=== PATIENT | female | born 1955 | race Caucasian/White ===

== ENCOUNTER 2017-04-16 18:02 | Inpatient (IN) | payer OTHER ==
--- NOTE | 2017-04-16 19:32 | ED Physician Chart ---
Chief Complaint/HPI - Patient Information Date Seen:: 04/16/17 Time Seen:: 19:15 Chief Complaint:: suicidal ideation History of Present Illness:: Patient states she would like to go to sleep and not wake up. Patient was admitted to hospital in [place] for 5 days 1 week ago for vomiting and diarrhea. Patient is homeless. Allergies:: Allergies Allergy/AdvReac Type Severity Reaction Status Date / Time tramadol [From Ultram] Allergy Verified 04/16/17 18:52 Vitals:: Vital Signs - 8 hr 04/16/17 18:41 Temp 98.9 F HR 112 RR 16 BP 144/114 O2 Sat % 99 Historian:: Patient Review:: Nurse's Note Reviewed Review of Systems - Review of Systems General/Constitutional: No fever, No chills Skin: No skin lesions Head: No headache Eyes: No loss of vision ENT: No earache Neck: No neck pain, No swelling Cardio Vascular: No chest pain, No palpitations Pulmonary: No SOB GI: No nausea, No vomiting G/U: No dysuria, No frequency Musculoskeletal: Bone or joint pain, No bone or joint pain Endocrine: No polyuria, No polydipsia Psychiatric: Prior psych history Hematopoietic: No bruising Allergic/Immuno: No urticaria Neurological: No syncope, No focal symptoms Past Medical History - Past Medical History Past Medical History: PUD/GERD, Other (cervical stenosis) Family History: HTN Social History: Smoker, Alcohol, Other (occasional alcohol) Surgical History: other (tubal ligation) Psychiatricy History: Bipolar Medication: Reviewed Family Medical History - Family Member Mother History Unknown: Yes Physical Exam - Physical Examination General/Constitutional: Well-developed, well-nourished, Alert, No distress, Non- toxic appearing, Ambulatory Head: Atraumatic Eyes: Lids, conjuctiva normal, PERRL Skin: Nl inspection, No rash, No skin lesions, No ecchymosis, Well hydrated, No lymphadenopathy ENMT: External ears, nose nl, TM canals nl, Nasal exam nl, Lips, teeth, gums nl , Oropharynx nl, Tonsils nl Neck: No nuchal rigidity Respiratory: Nl effort/Exclusion, Clear to Auscultation, No Wheeze/Rhonchi/Rales Cardio Vascular: RRR, No murmur, gallop, rubs GI: No tenderness/rebounding/guarding, No organomegaly : No CVA tenderness Extremities: No tenderness or effusion Neuro/Psych: Alert/oriented, No focal deficits Misc: Normal back, No paraspinal tenderness Labs/Radiology/EKG Results - Lab Results Results: Laboratory Results - last 24 hr 04/16/17 04/16/17 19:37 19:37 WBC 7.1 RBC 3.35 L Hgb 11.4 L Hct 33.3 L MCV 99.2 MCH 34.1 H MCHC Differential 34.3 RDW 17.6 Plt Count 520 H MPV 8.1 Neutrophils % 65.8 Lymphocytes % 19.1 L Monocytes % 12.9 H Eosinophils % 2.0 Basophils % 0.2 Sodium 137 Potassium 3.0 L Chloride 109 H Carbon Dioxide 16.6 L Anion Gap 14.4 BUN 9 Creatinine 1.1 Est GFR ( Amer) > 60.0 Est GFR (Non-Af Amer) 53.5 BUN/Creatinine Ratio 8.2 Glucose 82 Calcium 10.6 H Total Bilirubin 0.3 AST 16 ALT 16 Alkaline Phosphatase 249 H Total Protein 6.6 Albumin 3.8 Globulin 2.8 Albumin/Globulin Ratio 1.4 ED Septic Shock - . Is Septic Shock (SBP<90, OR Lactate>4 mmol\L) present?: No - <6hrs of presentation: Vital Signs: Vital Signs - 8 hr 04/16/17 18:41 Temp 98.9 F HR 112 RR 16 BP 144/114 O2 Sat % 99 Reassessment (Disposition) - Reassessment Reassessment Condition:: Unchanged - Diagnosis Diagnosis:: Hypokalemia; suicidal ideation - Patient Disposition Admitted to:: Med/Surg Spoke to:: Ar Us Admitting Medical Physician:: Ar Us Condition at Disposition:: Unchanged
[2017-04-16 19:43] LABS: % BASOPHILS 0.2 % (0.0-2.0); % LYMPHOCYTES 19.1 % (20.0-50.0); % MONOCYTES 12.9 % (2.0-10.0); % NEUTROPHILS 65.8 % (40.0-80.0); HEMATOCRIT 33.3 % (35.0-45.0); HEMOGLOBIN 11.4 gm/dL (11.7-15.5); MEAN CELL VOLUME 99.2 fl (81-100); MEAN CORPUSCULAR HEMOGLOBIN 34.1 pg (27.0-31.0); MEAN CORPUSCULAR HGB CONC 34.3 pg (28.0-36.0); MEAN PLATELET VOLUME 8.1 fl; NEUTROPHILE ABSOLUTE 4.7 Th/cmm (1.8-8.0); PLATELET COUNT 520 Th/cmm (150-400); RED BLOOD COUNT 3.35 Mil/cmm (3.80-5.10); RED CELL DISTRIBUTION WIDTH 17.6 % (11.5-20.0); WHITE BLOOD COUNT 7.1 Th/cmm (4.8-10.8)
[2017-04-16 19:59] LABS: ALB/GLOB RATIO 1.4 (1.0-1.8); ALKALINE PHOSPHATASE 249 U/L (34-104); ANION GAP 14.4 (7.0-16.0); BILIRUBIN,TOTAL 0.3 mg/dL (0.3-1.0); BUN - UREA NITROGEN 9 mg/dL (7-25); BUN/CREATININE RATIO 8.2; CALCIUM SERUM 10.6 mg/dL (8.6-10.3); CARBON DIOXIDE 16.6 mEq/L (21.0-31.0); CHLORIDE 109 mEq/L (98-107); CREATININE - SERUM 1.1 mg/dL (0.6-1.2); GLUCOSE 82 mg/dL (70-105); SGOT 16 U/L (13-39); SGPT/ALT 16 U/L (7-52); SODIUM SERUM 137 mEq/L (136-145)
[2017-04-16 22:01] LABS: URINE BILIRUBIN NEGATIVE (NEGATIVE); URINE BLOOD NEGATIVE (NEGATIVE); URINE COLOR YELLOW; URINE GLUCOSE (UA) NEGATIVE (NEGATIVE); URINE KETONE NEGATIVE (NEGATIVE); URINE PROTEIN NEGATIVE (NEGATIVE); URINE UROBILINOGEN 0.2 E.U./dL (0.2 - 1.0)
[2017-04-16 22:02] LABS: URINE BACTERIA NONE SEEN /hpf (NONE SEEN); URINE EPITHELIAL CELLS NONE SEEN /lpf (FEW); URINE RBC NONE SEEN /hpf (0-5); URINE WBC NONE SEEN /hpf (0-5)
[2017-04-16] MEDS ORDERED: Potassium Chloride 40 MEQ in Sodium Chloride 0.45% 1,000 ML IV SCH (22:39)
[2017-04-16 22:47] VITALS: BP 142/85
--- NOTE | 2017-04-16 23:33 | Admit Criteria Form ---
Admit Criteria Forms - Admit Criteria Diagnosis: PSYCHIATRIC DISORDERS (Place 'X' for any and all applicable criteria): Ongoing inpatient care may be needed for 1 or more of the following(1)(2)(3)(4)( 6)(7)(8): [X ]I. Danger to self or others not manageable at lower level of care. [ ]II. Grave disability (eg, inability to perform self care necessary at lower level of care) [ ]III. Agitation or inappropriate behavior interfering with care for primary condition (eg, attempting to discontinue lines or drains prematurely, unable to cooperate with respiratory care) [ ]IV. Severe disability or disorder indicated by ALL of the following: [ ]a) Severe behavioral health disorder-related symptoms or condition indicated by 1 or more of the following: [ ]i) Severe problem with cognition, memory, judgment, or impulse control [ ]ii) Severe clinical manifestations (eg, hallucinations, delusions, other acute psychotic symptoms, alanna, extreme agitation or anxiety) [ ]b) Patient management at lower level of care is not feasible until acute intervention or modification is initiated. Extended stay beyond goal length of stay for the primary condition may be needed until ALLof the following are present(1)(2)(3)(4)7)05)(23): [ ]a) Danger to self or others is absent or manageable at lower level of care [ ]b) Behavior crisis management, including physical or chemical restraints, is required and is not available at a lower level of care. [ ]c) Behavioral symptoms (e.g., agitation, somnolence, inappropriate behavior) are present, and are not manageable at a lower level of care. [ ]d) Patient cannot understand follow-up treatment and crisis plan. [ ]e) Provider and supports are sufficiently available at lower level of care. [ ]f) Patient can participate (e.g., verify absence of plan for harm) and is in needed of monitoring. The original [facility] [employer] content created by [facility] has been revised. The portions of the content which have been revised are identified through the use of italic text or in bold, and [facility] [employer] has neither reviewed nor approved the modified material. All other unmodified content is copyright [facility]. Please see references footnoted in the original [facility] edition 2017 Admit Criteria Met?: Yes
[2017-04-17] MEDS ORDERED: 0.45% NS w/20 mEq KCl 1,000 ML IV ONE (00:16)
[2017-04-17] MEDS: 0.45% NS w/20 mEq KCl 1,000 ML IV SCH ×2 (00:27→21:43)
[2017-04-17 05:32] LABS: % BASOPHILS 0.8 % (0.0-2.0); % EOSINOPHILS 4.2 % (0.0-5.0); % LYMPHOCYTES 25.8 % (20.0-50.0); % MONOCYTES 12.8 % (2.0-10.0); % NEUTROPHILS 56.4 % (40.0-80.0); HEMATOCRIT 33.4 % (35.0-45.0); HEMOGLOBIN 11.1 gm/dL (11.7-15.5); MEAN CELL VOLUME 99.6 fl (81-100); MEAN CORPUSCULAR HGB CONC 33.1 pg (28.0-36.0); MEAN PLATELET VOLUME 8.1 fl; NEUTROPHILE ABSOLUTE 3.3 Th/cmm (1.8-8.0); PLATELET COUNT 482 Th/cmm (150-400); RED BLOOD COUNT 3.35 Mil/cmm (3.80-5.10); RED CELL DISTRIBUTION WIDTH 17.7 % (11.5-20.0); WHITE BLOOD COUNT 5.7 Th/cmm (4.8-10.8)
[2017-04-17 06:40] LABS: ALB/GLOB RATIO 1.4 (1.0-1.8); ANION GAP 6.6 (7.0-16.0); BILIRUBIN,TOTAL 0.3 mg/dL (0.3-1.0); BUN/CREATININE RATIO 8.3; CARBON DIOXIDE 23.5 mEq/L (21.0-31.0); CREATININE - SERUM 1.2 mg/dL (0.6-1.2); POTASSIUM SERUM 4.1 mEq/L (3.5-5.1)
[2017-04-17] MEDS: Pantoprazole 40 mg EC Tab PO SCH (08:36)
[2017-04-17] MEDS ORDERED: VTE Chemical Prophylaxis Screen/Admission MC PRN (14:32)
[2017-04-18] MEDS: Pantoprazole 40 mg EC Tab PO SCH (06:30)
[2017-04-18] MEDS: 0.45% NS w/20 mEq KCl 1,000 ML IV SCH (17:44)
[2017-04-19] MEDS: Pantoprazole 40 mg EC Tab PO SCH (06:43)
[2017-04-19] MEDS: 0.45% NS w/20 mEq KCl 1,000 ML IV SCH ×2 (06:45→21:09)
[2017-04-20] MEDS: Pantoprazole 40 mg EC Tab PO SCH (06:51)
[2017-04-20] MEDS: 0.45% NS w/20 mEq KCl 1,000 ML IV SCH (13:28)
--- NOTE | 2017-04-20 16:48 | Internal Medicine Prog Note ---
Internal Medicine Subjective - Subjective Service Date: 04/20/17 Patient seen and examined:: with staff Patient is:: awake Patient Complaints of:: unable to sleep Per staff patient has:: poor appetite Internal Medicine Objective - Results Result Diagrams: 04/17/17 05:05 04/17/17 05:05 Recent Labs: Laboratory Last Values WBC 5.7 Th/cmm (4.8-10.8) 04/17/17 05:05 RBC 3.35 Mil/cmm (3.80-5.10) L 04/17/17 05:05 Hgb 11.1 gm/dL (11.7-15.5) L 04/17/17 05:05 Hct 33.4 % (35.0-45.0) L 04/17/17 05:05 MCV 99.6 fl (81-100) 04/17/17 05:05 MCH 33.0 pg (27.0-31.0) H 04/17/17 05:05 MCHC Differential 33.1 pg (28.0-36.0) 04/17/17 05:05 RDW 17.7 % (11.5-20.0) 04/17/17 05:05 Plt Count 482 Th/cmm (150-400) H 04/17/17 05:05 MPV 8.1 fl 04/17/17 05:05 Neutrophils % 56.4 % (40.0-80.0) 04/17/17 05:05 Lymphocytes % 25.8 % (20.0-50.0) 04/17/17 05:05 Monocytes % 12.8 % (2.0-10.0) H 04/17/17 05:05 Eosinophils % 4.2 % (0.0-5.0) 04/17/17 05:05 Basophils % 0.8 % (0.0-2.0) 04/17/17 05:05 Sodium 138 mEq/L (136-145) 04/17/17 05:05 Potassium 4.1 mEq/L (3.5-5.1) 04/17/17 05:05 Chloride 112 mEq/L (98-107) H 04/17/17 05:05 Carbon Dioxide 23.5 mEq/L (21.0-31.0) 04/17/17 05:05 Anion Gap 6.6 (7.0-16.0) L 04/17/17 05:05 BUN 10 mg/dL (7-25) 04/17/17 05:05 Creatinine 1.2 mg/dL (0.6-1.2) 04/17/17 05:05 Est GFR ( Amer) 58.5 ml/min (>90) 04/17/17 05:05 Est GFR (Non-Af Amer) 48.4 ml/min 04/17/17 05:05 BUN/Creatinine Ratio 8.3 04/17/17 05:05 Glucose 102 mg/dL (70-105) 04/17/17 05:05 Calcium 10.0 mg/dL (8.6-10.3) 04/17/17 05:05 Magnesium 2.0 mg/dL (1.9-2.7) 04/16/17 19:37 Total Bilirubin 0.3 mg/dL (0.3-1.0) 04/17/17 05:05 AST 18 U/L (13-39) 04/17/17 05:05 ALT 15 U/L (7-52) 04/17/17 05:05 Alkaline Phosphatase 218 U/L (34-104) H 04/17/17 05:05 Total Protein 5.8 gm/dL (6.0-8.3) L 04/17/17 05:05 Albumin 3.4 gm/dL (3.7-5.3) L 04/17/17 05:05 Globulin 2.4 gm/dL 04/17/17 05:05 Albumin/Globulin Ratio 1.4 (1.0-1.8) 04/17/17 05:05 TSH 3.28 uIU/ml (0.34-5.60) 04/16/17 19:37 Urine Source CLEAN C 04/16/17 20:00 Urine Color YELLOW 04/16/17 20:00 Urine Clarity CLEAR (CLEAR) 04/16/17 20:00 Urine pH 5.0 04/16/17 20:00 Ur Specific [place] 1.005 (1.005-1.030) 04/16/17 20:00 Urine Protein NEGATIVE mg/dL (NEGATIVE) 04/16/17 20:00 Urine Glucose (UA) NEGATIVE mg/dL (NEGATIVE) 04/16/17 20:00 Urine Ketones NEGATIVE mg/dL (NEGATIVE) 04/16/17 20:00 Urine Blood NEGATIVE (NEGATIVE) 04/16/17 20:00 Urine Nitrate NEGATIVE (NEGATIVE) 04/16/17 20:00 Urine Bilirubin NEGATIVE (NEGATIVE) 04/16/17 20:00 Urine Urobilinogen 0.2 E.U./dL (0.2 - 1.0) 04/16/17 20:00 Ur Leukocyte Esterase NEGATIVE (NEGATIVE) 04/16/17 20:00 Urine RBC NONE SEEN /hpf (0-5) 04/16/17 20:00 Urine WBC NONE SEEN /hpf (0-5) 04/16/17 20:00 Ur Epithelial Cells NONE SEEN /lpf (FEW) 04/16/17 20:00 Urine Bacteria NONE SEEN /hpf (NONE SEEN) 04/16/17 20:00 RPR NONREACTIVE (NONREACTIVE) 04/16/17 19:37 - Physical Exam Vitals and I&O: Vital Signs Temp 99.3 F 04/20/17 12:00 Pulse 73 04/20/17 12:00 Resp 18 04/20/17 12:00 BP 119/75 04/20/17 12:00 Pulse Ox 98 04/20/17 12:00 Intake & Output 04/19/17 04/20/17 04/20/17 18:59 06:59 18:59 Intake Total 650 1300 1000 Balance 650 1300 1000 Weight (lbs) 50.757 kg 51.256 kg 50.213 kg Intake: Intake, IV Amount 1000 1000 0.45% NS w/20 mEq KCl 1, 1000 1000 000 ml @ 75 mls/hr IV . [id number] [facility] Rx#:[id number] Oral 650 300 Other: # Voids 3 4 # Bowel Movements 1 Active Medications: Current Medications Alprazolam (Xanax) 0.5 mg PO TID JESUSITA PRN Reason: Protocol Stop: 06/16/17 08:59 Last Admin: 04/20/17 13:07 Dose: 0.5 mg Escitalopram Oxalate (Lexapro) 10 mg PO HS [facility] PRN Reason: Protocol Stop: 06/16/17 20:59 Last Admin: 04/19/17 21:10 Dose: 10 mg Heparin Sodium (Porcine) (Heparin) 5,000 units SUBQ BID [facility] Stop: 06/16/17 16:59 Last Admin: 04/20/17 09:03 Dose: 5,000 units Potassium Chloride/Sodium Chloride (0.45% Ns W/20 Meq Kcl) 1,000 mls @ 75 mls/ hr IV .[id number] JESUSITA Stop: 06/16/17 00:08 Last Admin: 04/20/17 13:28 Dose: 75 mls/hr Ibuprofen (Motrin) 800 mg PO Q8HR PRN PRN Reason: FOR PAIN Stop: 06/16/17 00:07 Last Admin: 04/20/17 13:27 Dose: 800 mg Mirtazapine (Remeron) 15 mg PO HS JESUSITA PRN Reason: Protocol Stop: 06/16/17 20:59 Last Admin: 04/19/17 21:11 Dose: 15 mg Miscellaneous (Vte Chemical Prophylaxis Screen/ Admission) 1 ea [facility] PRN PRN PRN Reason: PROTOCOL Stop: 06/16/17 14:31 Ondansetron HCl (Zofran) 4 mg IV Q4H PRN PRN Reason: FOR NAUSEA AND VOMITING Stop: 06/16/17 06:59 Last Admin: 04/19/17 05:58 Dose: 4 mg Pantoprazole Sodium (Protonix) 40 mg PO QDAC JESUSITA Stop: 06/16/17 08:59 Last Admin: 04/20/17 06:51 Dose: 40 mg Quetiapine Fumarate (Seroquel) 25 mg PO TID JESUSITA PRN Reason: Protocol Stop: 06/18/17 13:59 Last Admin: 04/20/17 13:08 Dose: 25 mg General: alert HEENT: PERRLA Neck: Supple, No JVD Lungs: CTAB Cardiovascular: RRR, Normal S1, Normal S2 Abdomen: soft, non-tender, non-distended Extremities: clear Neurological: no change Internal Medicine Assmt/Plan - Assessment Assessment: 1'Sever depression 2.COPD - Plan Plan: cONTINUE ON CURRENT MEDICATON AND DIET. Nutritional Asmnt/Malnutr-PDOC - Dietary Evaluation Malnutrition Findings (Please click <Entered> for more info): Nutritional Asmnt/Malnutrition Start: 04/17/17 14: 38 Text: Status: Complete Freq: Document 04/17/17 14:38 GSUN (Rec: 04/17/17 15:04 [email or web address]) Nutritional Asmnt/Malnutrition Patient General Information Nutritional Screening High Risk Screening Diagnosis ER: hypokalemia, suicidal ideation Pertinent Medical Hx/Surgical Hx ER: PUD/GERD, cervical stenosis Subjective Information 61 year old female, homeless. High risk due to BMI 13. Pt does not appear BMI 13. Pt corrected height to be 5ft 4in not 6ft 3in, corrected in EMR . Pt stated UBW 118lb, recent 25 wiehgt loss in past 6 weks, questionable, did not elaborate more. Pt appeared very anxious during visit, focused responses around medications. CBW 107.2lb via bedscale. Pt appeared thin, mild to moderate wasting in clavicles, moderate to chest. Pt stated she felt anxious and nauseas due to regular meds stopped therefore could not tolerate breakfast, otherwise usually great appetite. Current Diet Order/ Nutrition Support Regular Pertinent Medications Xanax, Remeron, Zofran, Protonix Pertinent Labs Reviewed. Nutritional Hx/Data Height 1.63 m Height (Calculated Centimeters) 162.6 Current Weight (lbs) 48.625 kg Weight (Calculated Kilograms) 48.6 Weight (Calculated Grams) 25274.1 [place] Body Weight 120 Weight Status Underweight GI Symptoms Food Allergies No Skin Integrity/Comment: [place]. Skin intact. Estimated Nutritional Goals Calories/Kcals/Kg IBW/UBW 120lb/54.5kg Kcals Calculated 1363-1635kcal (25-30kcal/kg) Protein Calculated 55g (1g/kg) Fluid: ml 1363-1635ml (1ml/kcal) Nutritional Problem 1. Problem Problem No nutrition problem at this time. Intervention/Recommendation Comments 1. Continue with current diet order. Encourage PO intake. 2. Monitor weight. Thin built, mild to modrate fat/muscle wasting to clavicles and chest noted. Pt report recent weight loss, questionable. Expected Outcomes/Goals Expected Outcomes/Goals 1. PO intake to meet at least 75% of estimated nutritional needs.
[2017-04-21] MEDS: 0.45% NS w/20 mEq KCl 1,000 ML IV SCH ×2 (02:42→17:05)
[2017-04-21] MEDS: Pantoprazole 40 mg EC Tab PO SCH (06:53)
[2017-04-22] MEDS: 0.45% NS w/20 mEq KCl 1,000 ML IV SCH (06:32)
[2017-04-22] MEDS: Pantoprazole 40 mg EC Tab PO SCH (06:33)
[2017-04-22 06:36] LABS: % BASOPHILS 1.4 % (0.0-2.0); % EOSINOPHILS 3.3 % (0.0-5.0); % LYMPHOCYTES 13.9 % (20.0-50.0); % MONOCYTES 12.5 % (2.0-10.0); % NEUTROPHILS 68.9 % (40.0-80.0); HEMATOCRIT 34.4 % (35.0-45.0); HEMOGLOBIN 11.4 gm/dL (11.7-15.5); MEAN CELL VOLUME 99.6 fl (81-100); MEAN CORPUSCULAR HEMOGLOBIN 33.1 pg (27.0-31.0); MEAN CORPUSCULAR HGB CONC 33.3 pg (28.0-36.0); MEAN PLATELET VOLUME 8.9 fl; NEUTROPHILE ABSOLUTE 4.7 Th/cmm (1.8-8.0); RED BLOOD COUNT 3.45 Mil/cmm (3.80-5.10); RED CELL DISTRIBUTION WIDTH 17.8 % (11.5-20.0)
[2017-04-22 06:45] LABS: PLATELET COUNT 370 Th/cmm (150-400); WHITE BLOOD COUNT 6.9 Th/cmm (4.8-10.8)
[2017-04-22 07:31] LABS: ALB/GLOB RATIO 1.5 (1.0-1.8); ALKALINE PHOSPHATASE 159 U/L (34-104); ANION GAP 9.6 (7.0-16.0); BILIRUBIN,TOTAL 0.2 mg/dL (0.3-1.0); BUN - UREA NITROGEN 22 mg/dL (7-25); CALCIUM SERUM 10.7 mg/dL (8.6-10.3); CARBON DIOXIDE 22.5 mEq/L (21.0-31.0); CHLORIDE 113 mEq/L (98-107); CREATININE - SERUM 1.1 mg/dL (0.6-1.2); GLUCOSE 100 mg/dL (70-105); POTASSIUM SERUM 5.1 mEq/L (3.5-5.1); SGOT 26 U/L (13-39); SGPT/ALT 22 U/L (7-52); SODIUM SERUM 140 mEq/L (136-145)
[2017-04-23] MEDS: Pantoprazole 40 mg EC Tab PO SCH (06:33)
--- NOTE | 2017-04-23 14:48 | Internal Medicine Prog Note ---
Internal Medicine Subjective - Subjective Service Date: 04/23/17 Patient is:: awake Patient Complaints of:: unable to sleep Per staff patient has:: poor appetite Internal Medicine Objective - Results Result Diagrams: 04/22/17 06:13 04/22/17 06:13 Recent Labs: Laboratory Last Values WBC 6.9 Th/cmm (4.8-10.8) D 04/22/17 06:13 RBC 3.45 Mil/cmm (3.80-5.10) L 04/22/17 06:13 Hgb 11.4 gm/dL (11.7-15.5) L 04/22/17 06:13 Hct 34.4 % (35.0-45.0) L 04/22/17 06:13 MCV 99.6 fl (81-100) 04/22/17 06:13 MCH 33.1 pg (27.0-31.0) H 04/22/17 06:13 MCHC Differential 33.3 pg (28.0-36.0) 04/22/17 06:13 RDW 17.8 % (11.5-20.0) 04/22/17 06:13 Plt Count 370 Th/cmm (150-400) D 04/22/17 06:13 MPV 8.9 fl 04/22/17 06:13 Neutrophils % 68.9 % (40.0-80.0) 04/22/17 06:13 Lymphocytes % 13.9 % (20.0-50.0) L 04/22/17 06:13 Monocytes % 12.5 % (2.0-10.0) H 04/22/17 06:13 Eosinophils % 3.3 % (0.0-5.0) 04/22/17 06:13 Basophils % 1.4 % (0.0-2.0) 04/22/17 06:13 Sodium 140 mEq/L (136-145) 04/22/17 06:13 Potassium 5.1 mEq/L (3.5-5.1) 04/22/17 06:13 Chloride 113 mEq/L (98-107) H 04/22/17 06:13 Carbon Dioxide 22.5 mEq/L (21.0-31.0) 04/22/17 06:13 Anion Gap 9.6 (7.0-16.0) 04/22/17 06:13 BUN 22 mg/dL (7-25) 04/22/17 06:13 Creatinine 1.1 mg/dL (0.6-1.2) 04/22/17 06:13 Est GFR ( Amer) > 60.0 ml/min (>90) 04/22/17 06:13 Est GFR (Non-Af Amer) 53.5 ml/min 04/22/17 06:13 BUN/Creatinine Ratio 20.0 04/22/17 06:13 Glucose 100 mg/dL (70-105) 04/22/17 06:13 Calcium 10.7 mg/dL (8.6-10.3) H 04/22/17 06:13 Magnesium 2.0 mg/dL (1.9-2.7) 04/16/17 19:37 Total Bilirubin 0.2 mg/dL (0.3-1.0) L 04/22/17 06:13 AST 26 U/L (13-39) 04/22/17 06:13 ALT 22 U/L (7-52) 04/22/17 06:13 Alkaline Phosphatase 159 U/L (34-104) H 04/22/17 06:13 Total Protein 6.2 gm/dL (6.0-8.3) 04/22/17 06:13 Albumin 3.7 gm/dL (3.7-5.3) 04/22/17 06:13 Globulin 2.5 gm/dL 04/22/17 06:13 Albumin/Globulin Ratio 1.5 (1.0-1.8) 04/22/17 06:13 TSH 3.28 uIU/ml (0.34-5.60) 04/16/17 19:37 Urine Source CLEAN C 04/16/17 20:00 Urine Color YELLOW 04/16/17 20:00 Urine Clarity CLEAR (CLEAR) 04/16/17 20:00 Urine pH 5.0 04/16/17 20:00 Ur Specific [place] 1.005 (1.005-1.030) 04/16/17 20:00 Urine Protein NEGATIVE mg/dL (NEGATIVE) 04/16/17 20:00 Urine Glucose (UA) NEGATIVE mg/dL (NEGATIVE) 04/16/17 20:00 Urine Ketones NEGATIVE mg/dL (NEGATIVE) 04/16/17 20:00 Urine Blood NEGATIVE (NEGATIVE) 04/16/17 20:00 Urine Nitrate NEGATIVE (NEGATIVE) 04/16/17 20:00 Urine Bilirubin NEGATIVE (NEGATIVE) 04/16/17 20:00 Urine Urobilinogen 0.2 E.U./dL (0.2 - 1.0) 04/16/17 20:00 Ur Leukocyte Esterase NEGATIVE (NEGATIVE) 04/16/17 20:00 Urine RBC NONE SEEN /hpf (0-5) 04/16/17 20:00 Urine WBC NONE SEEN /hpf (0-5) 04/16/17 20:00 Ur Epithelial Cells NONE SEEN /lpf (FEW) 04/16/17 20:00 Urine Bacteria NONE SEEN /hpf (NONE SEEN) 04/16/17 20:00 RPR NONREACTIVE (NONREACTIVE) 04/16/17 19:37 - Physical Exam Vitals and I&O: Vital Signs Temp 97.8 F 04/23/17 11:37 Pulse 70 04/23/17 11:37 Resp 17 04/23/17 11:37 BP 135/81 04/23/17 11:37 Pulse Ox 99 04/23/17 11:37 Intake & Output 04/22/17 04/23/17 04/23/17 18:59 06:59 18:59 Intake Total 500 960 480 Balance 500 960 480 Weight (lbs) 49.442 kg 52.617 kg 52.617 kg Intake: Oral 500 960 480 Other: # Voids 2 3 2 # Bowel Movements 2 Active Medications: Current Medications Alprazolam (Xanax) 0.5 mg PO TID JESUSITA PRN Reason: Protocol Stop: 06/16/17 08:59 Last Admin: 04/23/17 13:48 Dose: 0.5 mg Escitalopram Oxalate (Lexapro) 10 mg PO HS JESUSITA PRN Reason: Protocol Stop: 06/16/17 20:59 Last Admin: 04/22/17 20:58 Dose: 10 mg Heparin Sodium (Porcine) (Heparin) 5,000 units SUBQ BID JESUSITA Stop: 06/16/17 16:59 Last Admin: 04/23/17 09:25 Dose: 5,000 units Ibuprofen (Motrin) 800 mg PO Q8HR PRN PRN Reason: FOR PAIN Stop: 06/16/17 00:07 Last Admin: 04/23/17 09:26 Dose: 800 mg Mirtazapine (Remeron) 15 mg PO HS JESUSITA PRN Reason: Protocol Stop: 06/16/17 20:59 Last Admin: 04/22/17 20:58 Dose: 15 mg Miscellaneous (Vte Chemical Prophylaxis Screen/ Admission) 1 ea [facility] PRN PRN PRN Reason: PROTOCOL Stop: 06/16/17 14:31 Ondansetron HCl (Zofran) 4 mg IV Q4H PRN PRN Reason: FOR NAUSEA AND VOMITING Stop: 06/16/17 06:59 Last Admin: 04/19/17 05:58 Dose: 4 mg Pantoprazole Sodium (Protonix) 40 mg PO QDAC JESUSITA Stop: 06/16/17 08:59 Last Admin: 04/23/17 06:33 Dose: 40 mg Quetiapine Fumarate (Seroquel) 50 mg PO TID JESUSITA PRN Reason: Protocol Stop: 06/18/17 08:59 Last Admin: 04/23/17 13:47 Dose: 50 mg General: alert HEENT: PERRLA Neck: Supple, No JVD Lungs: CTAB Cardiovascular: RRR, Normal S1, Normal S2 Abdomen: soft, non-tender, non-distended Extremities: clear Neurological: no change Internal Medicine Assmt/Plan - Assessment Assessment: 1'Sever depression 2.COPD - Plan Plan: cONTINUE ON CURRENT MEDICATON AND DIET. Nutritional Asmnt/Malnutr-PDOC - Dietary Evaluation Malnutrition Findings (Please click <Entered> for more info): Nutritional Asmnt/Malnutrition Start: 04/17/17 14: 38 Text: Status: Complete Freq: Document 04/17/17 14:38 GSUN (Rec: 04/17/17 15:04 [email or web address]) Nutritional Asmnt/Malnutrition Patient General Information Nutritional Screening High Risk Screening Diagnosis ER: hypokalemia, suicidal ideation Pertinent Medical Hx/Surgical Hx ER: PUD/GERD, cervical stenosis Subjective Information 61 year old female, homeless. High risk due to BMI 13. Pt does not appear BMI 13. Pt corrected height to be 5ft 4in not 6ft 3in, corrected in EMR . Pt stated UBW 118lb, recent 25 wiehgt loss in past 6 weks, questionable, did not elaborate more. Pt appeared very anxious during visit, focused responses around medications. CBW 107.2lb via bedscale. Pt appeared thin, mild to moderate wasting in clavicles, moderate to chest. Pt stated she felt anxious and nauseas due to regular meds stopped therefore could not tolerate breakfast, otherwise usually great appetite. Current Diet Order/ Nutrition Support Regular Pertinent Medications Xanax, Remeron, Zofran, Protonix Pertinent Labs Reviewed. Nutritional Hx/Data Height 1.63 m Height (Calculated Centimeters) 162.6 Current Weight (lbs) 48.625 kg Weight (Calculated Kilograms) 48.6 Weight (Calculated Grams) 49969.1 [place] Body Weight 120 Weight Status Underweight GI Symptoms Food Allergies No Skin Integrity/Comment: [place]. Skin intact. Estimated Nutritional Goals Calories/Kcals/Kg IBW/UBW 120lb/54.5kg Kcals Calculated 1363-1635kcal (25-30kcal/kg) Protein Calculated 55g (1g/kg) Fluid: ml 1363-1635ml (1ml/kcal) Nutritional Problem 1. Problem Problem No nutrition problem at this time. Intervention/Recommendation Comments 1. Continue with current diet order. Encourage PO intake. 2. Monitor weight. Thin built, mild to modrate fat/muscle wasting to clavicles and chest noted. Pt report recent weight loss, questionable. Expected Outcomes/Goals Expected Outcomes/Goals 1. PO intake to meet at least 75% of estimated nutritional needs.
[2017-04-24] MEDS: Pantoprazole 40 mg EC Tab PO SCH (08:59)
--- NOTE | 2017-04-24 13:33 | Internal Medicine Prog Note ---
Internal Medicine Subjective - Subjective Service Date: 04/24/17 Patient is:: awake Patient Complaints of:: unable to sleep Per staff patient has:: eating well Internal Medicine Objective - Results Result Diagrams: 04/22/17 06:13 04/22/17 06:13 Recent Labs: Laboratory Last Values WBC 6.9 Th/cmm (4.8-10.8) D 04/22/17 06:13 RBC 3.45 Mil/cmm (3.80-5.10) L 04/22/17 06:13 Hgb 11.4 gm/dL (11.7-15.5) L 04/22/17 06:13 Hct 34.4 % (35.0-45.0) L 04/22/17 06:13 MCV 99.6 fl (81-100) 04/22/17 06:13 MCH 33.1 pg (27.0-31.0) H 04/22/17 06:13 MCHC Differential 33.3 pg (28.0-36.0) 04/22/17 06:13 RDW 17.8 % (11.5-20.0) 04/22/17 06:13 Plt Count 370 Th/cmm (150-400) D 04/22/17 06:13 MPV 8.9 fl 04/22/17 06:13 Neutrophils % 68.9 % (40.0-80.0) 04/22/17 06:13 Lymphocytes % 13.9 % (20.0-50.0) L 04/22/17 06:13 Monocytes % 12.5 % (2.0-10.0) H 04/22/17 06:13 Eosinophils % 3.3 % (0.0-5.0) 04/22/17 06:13 Basophils % 1.4 % (0.0-2.0) 04/22/17 06:13 Sodium 140 mEq/L (136-145) 04/22/17 06:13 Potassium 5.1 mEq/L (3.5-5.1) 04/22/17 06:13 Chloride 113 mEq/L (98-107) H 04/22/17 06:13 Carbon Dioxide 22.5 mEq/L (21.0-31.0) 04/22/17 06:13 Anion Gap 9.6 (7.0-16.0) 04/22/17 06:13 BUN 22 mg/dL (7-25) 04/22/17 06:13 Creatinine 1.1 mg/dL (0.6-1.2) 04/22/17 06:13 Est GFR ( Amer) > 60.0 ml/min (>90) 04/22/17 06:13 Est GFR (Non-Af Amer) 53.5 ml/min 04/22/17 06:13 BUN/Creatinine Ratio 20.0 04/22/17 06:13 Glucose 100 mg/dL (70-105) 04/22/17 06:13 Calcium 10.7 mg/dL (8.6-10.3) H 04/22/17 06:13 Magnesium 2.0 mg/dL (1.9-2.7) 04/16/17 19:37 Total Bilirubin 0.2 mg/dL (0.3-1.0) L 04/22/17 06:13 AST 26 U/L (13-39) 04/22/17 06:13 ALT 22 U/L (7-52) 04/22/17 06:13 Alkaline Phosphatase 159 U/L (34-104) H 04/22/17 06:13 Total Protein 6.2 gm/dL (6.0-8.3) 04/22/17 06:13 Albumin 3.7 gm/dL (3.7-5.3) 04/22/17 06:13 Globulin 2.5 gm/dL 04/22/17 06:13 Albumin/Globulin Ratio 1.5 (1.0-1.8) 04/22/17 06:13 TSH 3.28 uIU/ml (0.34-5.60) 04/16/17 19:37 Urine Source CLEAN C 04/16/17 20:00 Urine Color YELLOW 04/16/17 20:00 Urine Clarity CLEAR (CLEAR) 04/16/17 20:00 Urine pH 5.0 04/16/17 20:00 Ur Specific [place] 1.005 (1.005-1.030) 04/16/17 20:00 Urine Protein NEGATIVE mg/dL (NEGATIVE) 04/16/17 20:00 Urine Glucose (UA) NEGATIVE mg/dL (NEGATIVE) 04/16/17 20:00 Urine Ketones NEGATIVE mg/dL (NEGATIVE) 04/16/17 20:00 Urine Blood NEGATIVE (NEGATIVE) 04/16/17 20:00 Urine Nitrate NEGATIVE (NEGATIVE) 04/16/17 20:00 Urine Bilirubin NEGATIVE (NEGATIVE) 04/16/17 20:00 Urine Urobilinogen 0.2 E.U./dL (0.2 - 1.0) 04/16/17 20:00 Ur Leukocyte Esterase NEGATIVE (NEGATIVE) 04/16/17 20:00 Urine RBC NONE SEEN /hpf (0-5) 04/16/17 20:00 Urine WBC NONE SEEN /hpf (0-5) 04/16/17 20:00 Ur Epithelial Cells NONE SEEN /lpf (FEW) 04/16/17 20:00 Urine Bacteria NONE SEEN /hpf (NONE SEEN) 04/16/17 20:00 RPR NONREACTIVE (NONREACTIVE) 04/16/17 19:37 - Physical Exam Vitals and I&O: Vital Signs Temp 98.4 F 04/24/17 12:06 Pulse 86 04/24/17 12:06 Resp 18 04/24/17 12:06 BP 124/72 04/24/17 12:06 Pulse Ox 99 04/24/17 12:06 Intake & Output 04/23/17 04/24/17 04/24/17 18:59 06:59 18:59 Intake Total 480 480 Balance 480 480 Weight (lbs) 52.617 kg 52.163 kg Intake: Oral 480 480 Other: # Voids 2 2 # Bowel Movements 0 Active Medications: Current Medications Alprazolam (Xanax) 0.5 mg PO TID JESUSITA PRN Reason: Protocol Stop: 06/16/17 08:59 Last Admin: 04/24/17 08:59 Dose: 0.5 mg Escitalopram Oxalate (Lexapro) 10 mg PO HS JESUSITA PRN Reason: Protocol Stop: 06/16/17 20:59 Last Admin: 04/23/17 21:44 Dose: 10 mg Heparin Sodium (Porcine) (Heparin) 5,000 units SUBQ BID JESUSITA Stop: 06/16/17 16:59 Last Admin: 04/24/17 08:59 Dose: 5,000 units Ibuprofen (Motrin) 800 mg PO Q8HR PRN PRN Reason: FOR PAIN Stop: 06/16/17 00:07 Last Admin: 04/24/17 09:09 Dose: 800 mg Mirtazapine (Remeron) 15 mg PO HS JESUSITA PRN Reason: Protocol Stop: 06/16/17 20:59 Last Admin: 04/23/17 21:44 Dose: 15 mg Miscellaneous (Vte Chemical Prophylaxis Screen/ Admission) 1 ea [facility] PRN PRN PRN Reason: PROTOCOL Stop: 06/16/17 14:31 Ondansetron HCl (Zofran) 4 mg IV Q4H PRN PRN Reason: FOR NAUSEA AND VOMITING Stop: 06/16/17 06:59 Last Admin: 04/19/17 05:58 Dose: 4 mg Pantoprazole Sodium (Protonix) 40 mg PO QDAC JESUSITA Stop: 06/16/17 08:59 Last Admin: 04/24/17 08:59 Dose: 40 mg Quetiapine Fumarate (Seroquel) 50 mg PO TID JESUSITA PRN Reason: Protocol Stop: 06/18/17 08:59 Last Admin: 04/24/17 08:59 Dose: 50 mg General: alert HEENT: PERRLA Neck: Supple, No JVD Lungs: CTAB Cardiovascular: RRR, Normal S1, Normal S2 Abdomen: soft, non-tender, non-distended Extremities: clear Neurological: no change Internal Medicine Assmt/Plan - Assessment Assessment: 1'Sever depression 2.COPD - Plan Plan: Continue on current medication and diet. Nutritional Asmnt/Malnutr-PDOC - Dietary Evaluation Malnutrition Findings (Please click <Entered> for more info): Nutritional Asmnt/Malnutrition Start: 04/17/17 14: 38 Text: Status: Complete Freq: Document 04/17/17 14:38 GSUN (Rec: 04/17/17 15:04 [email or web address]) Nutritional Asmnt/Malnutrition Patient General Information Nutritional Screening High Risk Screening Diagnosis ER: hypokalemia, suicidal ideation Pertinent Medical Hx/Surgical Hx ER: PUD/GERD, cervical stenosis Subjective Information 61 year old female, homeless. High risk due to BMI 13. Pt does not appear BMI 13. Pt corrected height to be 5ft 4in not 6ft 3in, corrected in EMR . Pt stated UBW 118lb, recent 25 wiehgt loss in past 6 weks, questionable, did not elaborate more. Pt appeared very anxious during visit, focused responses around medications. CBW 107.2lb via bedscale. Pt appeared thin, mild to moderate wasting in clavicles, moderate to chest. Pt stated she felt anxious and nauseas due to regular meds stopped therefore could not tolerate breakfast, otherwise usually great appetite. Current Diet Order/ Nutrition Support Regular Pertinent Medications Xanax, Remeron, Zofran, Protonix Pertinent Labs Reviewed. Nutritional Hx/Data Height 1.63 m Height (Calculated Centimeters) 162.6 Current Weight (lbs) 48.625 kg Weight (Calculated Kilograms) 48.6 Weight (Calculated Grams) 25318.1 [place] Body Weight 120 Weight Status Underweight GI Symptoms Food Allergies No Skin Integrity/Comment: [place]. Skin intact. Estimated Nutritional Goals Calories/Kcals/Kg IBW/UBW 120lb/54.5kg Kcals Calculated 1363-1635kcal (25-30kcal/kg) Protein Calculated 55g (1g/kg) Fluid: ml 1363-1635ml (1ml/kcal) Nutritional Problem 1. Problem Problem No nutrition problem at this time. Intervention/Recommendation Comments 1. Continue with current diet order. Encourage PO intake. 2. Monitor weight. Thin built, mild to modrate fat/muscle wasting to clavicles and chest noted. Pt report recent weight loss, questionable. Expected Outcomes/Goals Expected Outcomes/Goals 1. PO intake to meet at least 75% of estimated nutritional needs.
[2017-04-25] MEDS: Pantoprazole 40 mg EC Tab PO SCH (06:32)
[2017-04-26] MEDS: Pantoprazole 40 mg EC Tab PO SCH (06:31)
[2017-04-27] MEDS: Pantoprazole 40 mg EC Tab PO SCH (08:33)
--- NOTE | 2017-04-27 17:52 | Internal Medicine Prog Note ---
Internal Medicine Subjective - Subjective Service Date: 04/27/17 Patient seen and examined:: with staff Patient is:: awake Patient Complaints of:: unable to sleep Per staff patient has:: eating well Internal Medicine Objective - Results Result Diagrams: 04/22/17 06:13 04/22/17 06:13 Recent Labs: Laboratory Last Values WBC 6.9 Th/cmm (4.8-10.8) D 04/22/17 06:13 RBC 3.45 Mil/cmm (3.80-5.10) L 04/22/17 06:13 Hgb 11.4 gm/dL (11.7-15.5) L 04/22/17 06:13 Hct 34.4 % (35.0-45.0) L 04/22/17 06:13 MCV 99.6 fl (81-100) 04/22/17 06:13 MCH 33.1 pg (27.0-31.0) H 04/22/17 06:13 MCHC Differential 33.3 pg (28.0-36.0) 04/22/17 06:13 RDW 17.8 % (11.5-20.0) 04/22/17 06:13 Plt Count 370 Th/cmm (150-400) D 04/22/17 06:13 MPV 8.9 fl 04/22/17 06:13 Neutrophils % 68.9 % (40.0-80.0) 04/22/17 06:13 Lymphocytes % 13.9 % (20.0-50.0) L 04/22/17 06:13 Monocytes % 12.5 % (2.0-10.0) H 04/22/17 06:13 Eosinophils % 3.3 % (0.0-5.0) 04/22/17 06:13 Basophils % 1.4 % (0.0-2.0) 04/22/17 06:13 Sodium 140 mEq/L (136-145) 04/22/17 06:13 Potassium 5.1 mEq/L (3.5-5.1) 04/22/17 06:13 Chloride 113 mEq/L (98-107) H 04/22/17 06:13 Carbon Dioxide 22.5 mEq/L (21.0-31.0) 04/22/17 06:13 Anion Gap 9.6 (7.0-16.0) 04/22/17 06:13 BUN 22 mg/dL (7-25) 04/22/17 06:13 Creatinine 1.1 mg/dL (0.6-1.2) 04/22/17 06:13 Est GFR ( Amer) > 60.0 ml/min (>90) 04/22/17 06:13 Est GFR (Non-Af Amer) 53.5 ml/min 04/22/17 06:13 BUN/Creatinine Ratio 20.0 04/22/17 06:13 Glucose 100 mg/dL (70-105) 04/22/17 06:13 Calcium 10.7 mg/dL (8.6-10.3) H 04/22/17 06:13 Magnesium 2.0 mg/dL (1.9-2.7) 04/16/17 19:37 Total Bilirubin 0.2 mg/dL (0.3-1.0) L 04/22/17 06:13 AST 26 U/L (13-39) 04/22/17 06:13 ALT 22 U/L (7-52) 04/22/17 06:13 Alkaline Phosphatase 159 U/L (34-104) H 04/22/17 06:13 Total Protein 6.2 gm/dL (6.0-8.3) 04/22/17 06:13 Albumin 3.7 gm/dL (3.7-5.3) 04/22/17 06:13 Globulin 2.5 gm/dL 04/22/17 06:13 Albumin/Globulin Ratio 1.5 (1.0-1.8) 04/22/17 06:13 TSH 3.28 uIU/ml (0.34-5.60) 04/16/17 19:37 Urine Source CLEAN C 04/16/17 20:00 Urine Color YELLOW 04/16/17 20:00 Urine Clarity CLEAR (CLEAR) 04/16/17 20:00 Urine pH 5.0 04/16/17 20:00 Ur Specific [place] 1.005 (1.005-1.030) 04/16/17 20:00 Urine Protein NEGATIVE mg/dL (NEGATIVE) 04/16/17 20:00 Urine Glucose (UA) NEGATIVE mg/dL (NEGATIVE) 04/16/17 20:00 Urine Ketones NEGATIVE mg/dL (NEGATIVE) 04/16/17 20:00 Urine Blood NEGATIVE (NEGATIVE) 04/16/17 20:00 Urine Nitrate NEGATIVE (NEGATIVE) 04/16/17 20:00 Urine Bilirubin NEGATIVE (NEGATIVE) 04/16/17 20:00 Urine Urobilinogen 0.2 E.U./dL (0.2 - 1.0) 04/16/17 20:00 Ur Leukocyte Esterase NEGATIVE (NEGATIVE) 04/16/17 20:00 Urine RBC NONE SEEN /hpf (0-5) 04/16/17 20:00 Urine WBC NONE SEEN /hpf (0-5) 04/16/17 20:00 Ur Epithelial Cells NONE SEEN /lpf (FEW) 04/16/17 20:00 Urine Bacteria NONE SEEN /hpf (NONE SEEN) 04/16/17 20:00 RPR NONREACTIVE (NONREACTIVE) 04/16/17 19:37 - Physical Exam Vitals and I&O: Vital Signs Temp 99.1 F 04/27/17 16:39 Pulse 89 04/27/17 16:39 Resp 26 04/27/17 16:39 BP 132/76 04/27/17 16:39 Pulse Ox 98 04/27/17 16:39 Intake & Output 04/26/17 04/27/17 04/27/17 18:59 06:59 18:59 Intake Total 800 240 Balance 800 240 Weight (lbs) 51.256 kg 51.256 kg Intake: Oral 800 240 Other: # Voids 4 3 # Bowel Movements 0 Active Medications: Current Medications Alprazolam (Xanax) 0.5 mg PO Q8HR PRN; Protocol PRN Reason: Anxiety Stop: 06/24/17 11:15 Last Admin: 04/27/17 16:48 Dose: 0.5 mg Escitalopram Oxalate (Lexapro) 10 mg PO HS JESUSITA PRN Reason: Protocol Stop: 06/16/17 20:59 Last Admin: 04/26/17 20:38 Dose: 10 mg Heparin Sodium (Porcine) (Heparin) 5,000 units SUBQ BID JESUSITA Stop: 06/16/17 16:59 Last Admin: 04/27/17 16:47 Dose: 5,000 units Ibuprofen (Motrin) 800 mg PO Q8HR PRN PRN Reason: FOR PAIN Stop: 06/16/17 00:07 Last Admin: 04/27/17 16:47 Dose: 800 mg Mirtazapine (Remeron) 15 mg PO HS JESUSITA PRN Reason: Protocol Stop: 06/16/17 20:59 Last Admin: 04/26/17 20:39 Dose: 15 mg Miscellaneous (Vte Chemical Prophylaxis Screen/ Admission) 1 ea [facility] PRN PRN PRN Reason: PROTOCOL Stop: 06/16/17 14:31 Ondansetron HCl (Zofran) 4 mg IV Q4H PRN PRN Reason: FOR NAUSEA AND VOMITING Stop: 06/16/17 06:59 Last Admin: 04/19/17 05:58 Dose: 4 mg Pantoprazole Sodium (Protonix) 40 mg PO QDAC JESUSITA Stop: 06/16/17 08:59 Last Admin: 04/27/17 08:33 Dose: 40 mg Quetiapine Fumarate (Seroquel) 50 mg PO TID JESUSITA PRN Reason: Protocol Stop: 06/18/17 08:59 Last Admin: 04/27/17 14:20 Dose: 50 mg General: alert HEENT: PERRLA Neck: Supple, No JVD Lungs: CTAB Cardiovascular: RRR, Normal S1, Normal S2 Abdomen: soft, non-tender, non-distended Extremities: clear Neurological: no change Internal Medicine Assmt/Plan - Assessment Assessment: 1'Sever depression 2.COPD - Plan Plan: Continue on current medication and diet. Nutritional Asmnt/Malnutr-PDOC - Dietary Evaluation Malnutrition Findings (Please click <Entered> for more info): Nutritional Asmnt/Malnutrition Start: 04/17/17 14: 38 Text: Status: Complete Freq: Document 04/17/17 14:38 GSUN (Rec: 04/17/17 15:04 [email or web address]) Nutritional Asmnt/Malnutrition Patient General Information Nutritional Screening High Risk Screening Diagnosis ER: hypokalemia, suicidal ideation Pertinent Medical Hx/Surgical Hx ER: PUD/GERD, cervical stenosis Subjective Information 61 year old female, homeless. High risk due to BMI 13. Pt does not appear BMI 13. Pt corrected height to be 5ft 4in not 6ft 3in, corrected in EMR . Pt stated UBW 118lb, recent 25 wiehgt loss in past 6 weks, questionable, did not elaborate more. Pt appeared very anxious during visit, focused responses around medications. CBW 107.2lb via bedscale. Pt appeared thin, mild to moderate wasting in clavicles, moderate to chest. Pt stated she felt anxious and nauseas due to regular meds stopped therefore could not tolerate breakfast, otherwise usually great appetite. Current Diet Order/ Nutrition Support Regular Pertinent Medications Xanax, Remeron, Zofran, Protonix Pertinent Labs Reviewed. Nutritional Hx/Data Height 1.63 m Height (Calculated Centimeters) 162.6 Current Weight (lbs) 48.625 kg Weight (Calculated Kilograms) 48.6 Weight (Calculated Grams) 36471.1 [place] Body Weight 120 Weight Status Underweight GI Symptoms Food Allergies No Skin Integrity/Comment: [place] 18. Skin intact. Estimated Nutritional Goals Calories/Kcals/Kg IBW/UBW 120lb/54.5kg Kcals Calculated 1363-1635kcal (25-30kcal/kg) Protein Calculated 55g (1g/kg) Fluid: ml 1363-1635ml (1ml/kcal) Nutritional Problem 1. Problem Problem No nutrition problem at this time. Intervention/Recommendation Comments 1. Continue with current diet order. Encourage PO intake. 2. Monitor weight. Thin built, mild to modrate fat/muscle wasting to clavicles and chest noted. Pt report recent weight loss, questionable. Expected Outcomes/Goals Expected Outcomes/Goals 1. PO intake to meet at least 75% of estimated nutritional needs.
[2017-04-28] MEDS: Pantoprazole 40 mg EC Tab PO SCH (09:03)
--- NOTE | 2017-04-28 11:40 | Internal Medicine Prog Note ---
Internal Medicine Subjective - Subjective Service Date: 04/28/17 Patient is:: awake Patient Complaints of:: unable to sleep Per staff patient has:: eating well Internal Medicine Objective - Results Result Diagrams: 04/22/17 06:13 04/22/17 06:13 Recent Labs: Laboratory Last Values WBC 6.9 Th/cmm (4.8-10.8) D 04/22/17 06:13 RBC 3.45 Mil/cmm (3.80-5.10) L 04/22/17 06:13 Hgb 11.4 gm/dL (11.7-15.5) L 04/22/17 06:13 Hct 34.4 % (35.0-45.0) L 04/22/17 06:13 MCV 99.6 fl (81-100) 04/22/17 06:13 MCH 33.1 pg (27.0-31.0) H 04/22/17 06:13 MCHC Differential 33.3 pg (28.0-36.0) 04/22/17 06:13 RDW 17.8 % (11.5-20.0) 04/22/17 06:13 Plt Count 370 Th/cmm (150-400) D 04/22/17 06:13 MPV 8.9 fl 04/22/17 06:13 Neutrophils % 68.9 % (40.0-80.0) 04/22/17 06:13 Lymphocytes % 13.9 % (20.0-50.0) L 04/22/17 06:13 Monocytes % 12.5 % (2.0-10.0) H 04/22/17 06:13 Eosinophils % 3.3 % (0.0-5.0) 04/22/17 06:13 Basophils % 1.4 % (0.0-2.0) 04/22/17 06:13 Sodium 140 mEq/L (136-145) 04/22/17 06:13 Potassium 5.1 mEq/L (3.5-5.1) 04/22/17 06:13 Chloride 113 mEq/L (98-107) H 04/22/17 06:13 Carbon Dioxide 22.5 mEq/L (21.0-31.0) 04/22/17 06:13 Anion Gap 9.6 (7.0-16.0) 04/22/17 06:13 BUN 22 mg/dL (7-25) 04/22/17 06:13 Creatinine 1.1 mg/dL (0.6-1.2) 04/22/17 06:13 Est GFR ( Amer) > 60.0 ml/min (>90) 04/22/17 06:13 Est GFR (Non-Af Amer) 53.5 ml/min 04/22/17 06:13 BUN/Creatinine Ratio 20.0 04/22/17 06:13 Glucose 100 mg/dL (70-105) 04/22/17 06:13 Calcium 10.7 mg/dL (8.6-10.3) H 04/22/17 06:13 Magnesium 2.0 mg/dL (1.9-2.7) 04/16/17 19:37 Total Bilirubin 0.2 mg/dL (0.3-1.0) L 04/22/17 06:13 AST 26 U/L (13-39) 04/22/17 06:13 ALT 22 U/L (7-52) 04/22/17 06:13 Alkaline Phosphatase 159 U/L (34-104) H 04/22/17 06:13 Total Protein 6.2 gm/dL (6.0-8.3) 04/22/17 06:13 Albumin 3.7 gm/dL (3.7-5.3) 04/22/17 06:13 Globulin 2.5 gm/dL 04/22/17 06:13 Albumin/Globulin Ratio 1.5 (1.0-1.8) 04/22/17 06:13 TSH 3.28 uIU/ml (0.34-5.60) 04/16/17 19:37 Urine Source CLEAN C 04/16/17 20:00 Urine Color YELLOW 04/16/17 20:00 Urine Clarity CLEAR (CLEAR) 04/16/17 20:00 Urine pH 5.0 04/16/17 20:00 Ur Specific [place] 1.005 (1.005-1.030) 04/16/17 20:00 Urine Protein NEGATIVE mg/dL (NEGATIVE) 04/16/17 20:00 Urine Glucose (UA) NEGATIVE mg/dL (NEGATIVE) 04/16/17 20:00 Urine Ketones NEGATIVE mg/dL (NEGATIVE) 04/16/17 20:00 Urine Blood NEGATIVE (NEGATIVE) 04/16/17 20:00 Urine Nitrate NEGATIVE (NEGATIVE) 04/16/17 20:00 Urine Bilirubin NEGATIVE (NEGATIVE) 04/16/17 20:00 Urine Urobilinogen 0.2 E.U./dL (0.2 - 1.0) 04/16/17 20:00 Ur Leukocyte Esterase NEGATIVE (NEGATIVE) 04/16/17 20:00 Urine RBC NONE SEEN /hpf (0-5) 04/16/17 20:00 Urine WBC NONE SEEN /hpf (0-5) 04/16/17 20:00 Ur Epithelial Cells NONE SEEN /lpf (FEW) 04/16/17 20:00 Urine Bacteria NONE SEEN /hpf (NONE SEEN) 04/16/17 20:00 RPR NONREACTIVE (NONREACTIVE) 04/16/17 19:37 - Physical Exam Vitals and I&O: Vital Signs Temp 97.9 F 04/28/17 07:43 Pulse 80 04/28/17 07:43 Resp 17 04/28/17 10:15 BP 128/76 04/28/17 07:43 Pulse Ox 99 04/28/17 07:43 Intake & Output 04/27/17 04/28/17 04/28/17 18:59 06:59 18:59 Intake Total 1080 700 Balance 1080 700 Weight (lbs) 51.256 kg 51.256 kg Intake: Oral 1080 700 Other: # Voids 3 3 # Bowel Movements 2 0 Active Medications: Current Medications Alprazolam (Xanax) 0.5 mg PO Q8HR PRN; Protocol PRN Reason: Anxiety Stop: 06/24/17 11:15 Last Admin: 04/28/17 09:03 Dose: 0.5 mg Escitalopram Oxalate (Lexapro) 10 mg PO HS JESUSITA PRN Reason: Protocol Stop: 06/16/17 20:59 Last Admin: 04/27/17 21:14 Dose: 10 mg Heparin Sodium (Porcine) (Heparin) 5,000 units SUBQ BID JESUSITA Stop: 06/16/17 16:59 Last Admin: 04/28/17 09:02 Dose: 5,000 units Ibuprofen (Motrin) 800 mg PO Q8HR PRN PRN Reason: FOR PAIN Stop: 06/16/17 00:07 Last Admin: 04/28/17 09:02 Dose: 800 mg Mirtazapine (Remeron) 15 mg PO HS JESUSITA PRN Reason: Protocol Stop: 06/16/17 20:59 Last Admin: 04/27/17 21:14 Dose: 15 mg Miscellaneous (Vte Chemical Prophylaxis Screen/ Admission) 1 ea [facility] PRN PRN PRN Reason: PROTOCOL Stop: 06/16/17 14:31 Ondansetron HCl (Zofran) 4 mg IV Q4H PRN PRN Reason: FOR NAUSEA AND VOMITING Stop: 06/16/17 06:59 Last Admin: 04/19/17 05:58 Dose: 4 mg Pantoprazole Sodium (Protonix) 40 mg PO QDAC JESUSITA Stop: 06/16/17 08:59 Last Admin: 04/28/17 09:03 Dose: 40 mg Quetiapine Fumarate (Seroquel) 50 mg PO TID JESUSITA PRN Reason: Protocol Stop: 06/18/17 08:59 Last Admin: 04/28/17 09:03 Dose: 50 mg General: alert HEENT: PERRLA Neck: Supple, No JVD Lungs: CTAB Cardiovascular: RRR, Normal S1, Normal S2 Abdomen: soft, non-tender, non-distended Extremities: clear Neurological: no change Internal Medicine Assmt/Plan - Assessment Assessment: 1'Sever depression 2.COPD - Plan Plan: Continue on current medication and diet. Nutritional Asmnt/Malnutr-PDOC - Dietary Evaluation Malnutrition Findings (Please click <Entered> for more info): Nutritional Asmnt/Malnutrition Start: 04/17/17 14: 38 Text: Status: Complete Freq: Document 04/17/17 14:38 GSUN (Rec: 04/17/17 15:04 [email or web address] [email or web address]) Nutritional Asmnt/Malnutrition Patient General Information Nutritional Screening High Risk Screening Diagnosis ER: hypokalemia, suicidal ideation Pertinent Medical Hx/Surgical Hx ER: PUD/GERD, cervical stenosis Subjective Information 61 year old female, homeless. High risk due to BMI 13. Pt does not appear BMI 13. Pt corrected height to be 5ft 4in not 6ft 3in, corrected in EMR . Pt stated UBW 118lb, recent 25 wiehgt loss in past 6 weks, questionable, did not elaborate more. Pt appeared very anxious during visit, focused responses around medications. CBW 107.2lb via bedscale. Pt appeared thin, mild to moderate wasting in clavicles, moderate to chest. Pt stated she felt anxious and nauseas due to regular meds stopped therefore could not tolerate breakfast, otherwise usually great appetite. Current Diet Order/ Nutrition Support Regular Pertinent Medications Xanax, Remeron, Zofran, Protonix Pertinent Labs Reviewed. Nutritional Hx/Data Height 1.63 m Height (Calculated Centimeters) 162.6 Current Weight (lbs) 48.625 kg Weight (Calculated Kilograms) 48.6 Weight (Calculated Grams) 35854.1 [place] Body Weight 120 Weight Status Underweight GI Symptoms Food Allergies No Skin Integrity/Comment: [place] 18. Skin intact. Estimated Nutritional Goals Calories/Kcals/Kg IBW/UBW 120lb/54.5kg Kcals Calculated 1363-1635kcal (25-30kcal/kg) Protein Calculated 55g (1g/kg) Fluid: ml 1363-1635ml (1ml/kcal) Nutritional Problem 1. Problem Problem No nutrition problem at this time. Intervention/Recommendation Comments 1. Continue with current diet order. Encourage PO intake. 2. Monitor weight. Thin built, mild to modrate fat/muscle wasting to clavicles and chest noted. Pt report recent weight loss, questionable. Expected Outcomes/Goals Expected Outcomes/Goals 1. PO intake to meet at least 75% of estimated nutritional needs.
[2017-04-29] MEDS: Pantoprazole 40 mg EC Tab PO SCH (09:19)
--- NOTE | 2017-05-08 16:45 | Discharge Summary ---
DATE OF DISCHARGE: 04/29/2017 FINAL DIAGNOSES: Severe depression, severe anxiety disorder, chronic obstructive pulmonary disease, hypertension. HISTORY: The patient is a 61-year-old female with long history of hypertension, chronic smoker, COPD, chronic anxiety disorder, depression, admitted to the [facility] on the 04/17/2017 with severe depression and severe anxiety disorder, poor appetite. Chest with diminished breathing sound. Heart, S1, S2 normal. Abdomen, soft, bowel sounds positive. The patient started on IV fluids. Regular diet. Psychiatric evaluation ordered. COURSE OF HOSPITALIZATION: During hospitalization, the patient remained stable clinically. She was seen by Dr. Pollock and her medication was resumed. On 04/22/2017, the patient was feeling well, no chest pain, no shortness of breath, no nausea, no vomiting, no fever, no chills. On 04/27/2017, the patient was eating well. IV hydration was discontinued. DISPOSITION: On 04/29/2017, the patient was transferred to the [facility] care facility to continue medication and diet. CONDITION ON DISCHARGE: Stable. MEDICATIONS: Follow discharge reconciliation. [facility]# [id number]
== END 2017-04-29 13:20 | disposition short-term general hospital (02) | DRG 140 ==
LOC: ER 18:02 → MSI 21:17
PROVIDERS: ADMIT Family Medicine; ATTEND Family Medicine
DX: J44.9 Chronic obstructive pulmonary disease, unspecified (principal); R45.851 Suicidal ideations; F32.2 Major depressive disorder, single episode, severe without psychotic features; M48.02 Spinal stenosis, cervical region; F41.9 Anxiety disorder, unspecified; E87.6 Hypokalemia; K21.9 Gastro-esophageal reflux disease without esophagitis; F17.210 Nicotine dependence, cigarettes, uncomplicated; I10 Essential (primary) hypertension; Z88.8 Allergy status to other drugs, medicaments and biological substances; Z59.0 Homelessness; Z82.49 Family history of ischemic heart disease and other diseases of the circulatory system; Z98.51 Tubal ligation status
CPT/HCPCS: 36415-UA; 80053-TC; 81001-TC; 83735-TC; 84443-TC; 85025-TC; 86592-TC; 93005; J1644; J2405; J3480; Z7610

== ENCOUNTER 2017-08-01 14:00 | Emergency (ER) | payer OTHER ==
--- NOTE | 2017-08-01 14:58 | ED Physician Chart ---
ED Chief Complaint/HPI - Patient Information Date Seen:: 08/01/17 Time Seen:: 14:16 Chief Complaint:: Cough for 4 days. History of Present Illness:: Brought in by private auto because of productive cough with yellow sputum for 4 days. No fever. No dyspnea. No N/V/D. No lightheadedness. Allergies:: Allergies Allergy/AdvReac Type Severity Reaction Status Date / Time tramadol [From Ultram] Allergy Verified 04/16/17 18:52 Vitals:: Vital Signs - 8 hr 08/01/17 14:25 Temp 98.2 F HR 118 RR 18 BP 103/64 O2 Sat % 97 Historian:: Patient Family MD/PCP:: Unknown. LMP:: Postmenopausal Review:: Nurse's Note Reviewed ED Review of Systems - Review of Systems General/Constitutional: No fever, No chills, No weight loss, No weakness, No edema, No loss of appetite Skin: No skin lesions, No rash, No bruising Head: No headache, No light-headedness Eyes: No loss of vision, No pain, No diplopia ENT: No earache, No nasal drainage, No sore throat Neck: No neck pain, No swelling, No stiffness, No mass noted Cardio Vascular: No chest pain, No palpitations, No edema Pulmonary: No SOB, Cough, Sputum, No wheezing GI: No nausea, No vomiting, No diarrhea, No pain G/U: No dysuria, No frequency, No hematuria 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, No abnormal vaginal bleed Musculoskeletal: Other (chronic pain related to osteoarthritis.) Endocrine: No polyuria, No polydipsia Psychiatric: Prior psych history, No depression Hematopoietic: No bruising, No lymphadenopathy Allergic/Immuno: Urticaria, No angioedema Neurological: No syncope, No focal symptoms, No weakness, No paresthesia, No headache, No dizziness, No confusion ED Past Medical History - Past Medical History Past Medical History: HTN, Dyslipidemia, Arthritis (with chronic pain syndrome, on opioid analgesic Bunn with last dose about 2 weeks ago.) Family History: Heart disease (in mother), Diabetes Melitus (m aunt.) Social History: Smoker (2 cigarets/week. Pt has been informed about health risks associated with chronic tobacco use and has been advised to quit. Pt has been encouraged to enroll in a smoking cessation program. Pt acknowledges understanding.), No Alcohol, No Drug Use, , Other (lives with a friend.) Employment:: unemployed. Family Medical History - Family Member Mother History Unknown: Yes Ethnicity: Unknown Living Status: Unknown Hx Family Cancer: (unknown) Hx Family Coronary Artery Disease: (UNKNOWN) Hx Family Congestive Heart Failure: (UNKNOWN) Hx Family Hypertension: (UNKNOWN) Hx Family Stroke: (UNKNOWN) Hx Family Diabetes: (UNKNOWN) Hx Family Seizures: (UNKNOWN) Hx Family Dementia: (UNKNOWN) Hx Family AIDS: (UNKNOWN) Hx Family COPD: (UNKNOWN) Hx Family Hepatitis: (UNKNOWN) Hx Family Psychiatric Problems: (UNKNOWN) Hx Family Tuberculosis: (UNKNOWN) ED Physical Exam - Physical Examination General/Constitutional: Awake, Well-developed, well-nourished, Alert, No distress, GCS 15, Non-toxic appearing, Ambulatory Other Gen/Cons comments:: Breathes comfortably, speaks clearly, and ambulates without difficulty. Head: Atraumatic Eyes: Lids, conjuctiva normal, PERRL, EOMI Skin: Nl inspection, No rash, No skin lesions, No ecchymosis, Well hydrated, No lymphadenopathy ENMT: External ears, nose nl, Nasal exam nl, Oropharynx nl Neck: Nontender, Full ROM w/o pain, No JVD, No nuchal rigidity, No mass, No stridor Respiratory: Nl effort/Exclusion, Clear to Auscultation, No Wheeze/Rhonchi/Rales Cardio Vascular: RRR (with HR 96), No murmur, gallop, rubs GI: No tenderness/rebounding/guarding, No organomegaly, Normal BS's, Nondistended, No mass/bruits Other GI comments:: Abdomen is soft. Extremities: No edema Neuro/Psych: Alert/oriented (oriented x 3), Normal gait, No focal deficits ED Septic Shock - . Is Septic Shock (SBP<90, OR Lactate>4 mmol\L) present?: No - <6hrs of presentation: Vital Signs: Vital Signs - 8 hr 08/01/17 14:25 Temp 98.2 F HR 118 RR 18 BP 103/64 O2 Sat % 97 ED Reassessment (Disposition) - Reassessment Reassessment:: 1620 Pt has tolerated oral hydration well and is not in distress. Pt breathes comfortably and ambulates without assistance without difficulty. Pt requests to go home now and does not want further observation/management in hospital. Aftercare instructions have been given. Reassessment Condition:: Improved - Diagnosis Diagnosis:: Acute bronchitis. Stable. - Aftercare/Follow up Instructions Aftercare/Follow-Up Instructions:: Refer to Discharge Instructions Notes:: Avoid tobacco use. Increase oral fluid. F/U with Dr. Us or PCP of pt's choice in one day for recheck. Return to ER immediately if condition worsens or if any further questions/problems. Medication Prescribed:: Zithromax 250 mg tab 2 tabs po for one dose today, then one tab po daily Day 2 to 5. D-6 R-0 - Patient Disposition Discharge/Transfer:: Home Time:: 16:30 Condition at Disposition:: Stable, Improved ED Discharge Plan - Patient Disposition Instructions: Bronchitis, [id number]
== END 2017-08-01 16:35 | disposition home or self-care (01) ==
LOC: ER 14:00
DX: J20.9 Acute bronchitis, unspecified (principal); I10 Essential (primary) hypertension; E78.5 Hyperlipidemia, unspecified; F17.200 Nicotine dependence, unspecified, uncomplicated; M12.9 Arthropathy, unspecified
CPT/HCPCS: Z7502; Z7610

== ENCOUNTER 2018-04-18 13:29 | Emergency (ER) | payer MEDICAID, OTHER ==
--- NOTE | 2018-04-18 14:09 | ED Physician Chart ---
ED Chief Complaint/HPI - Patient Information Date Seen:: 04/18/18 Time Seen:: 14:04 Chief Complaint:: homeless and needs assistance with senior living History of Present Illness:: 62 yr old female has become homeless over the last 2.5 yrs and having difficulty coping no nv no chest pain just very anxious Allergies:: Allergies Allergy/AdvReac Type Severity Reaction Status Date / Time aspirin Allergy Verified 04/18/18 13:36 tramadol [From Ultram] Allergy Verified 04/16/17 18:52 Vitals:: Vital Signs - 8 hr 04/18/18 13:36 Temp 97.5 F HR 102 RR 24 BP 161/81 O2 Sat % 100 Historian:: Patient ED Review of Systems - Review of Systems General/Constitutional: No fever, No chills, No weight loss, No weakness, No diaphoresis, No edema, No loss of appetite Skin: No skin lesions, No rash, No bruising Head: No headache, No light-headedness Eyes: No loss of vision, No pain, No diplopia ENT: No earache, No nasal drainage, No sore throat, No tinnitus Neck: No neck pain, No swelling, No thyromegaly, No stiffness, No mass noted Cardio Vascular: No chest pain, No palpitations, No PND, No orthopnea, No edema Pulmonary: No SOB, No cough, No sputum, No wheezing GI: No nausea, No vomiting, No diarrhea, No pain, No melena, No hematochezia, No constipation, No hematemesis G/U: No dysuria, No frequency, No hematuria Musculoskeletal: No bone or joint pain, No back pain, No muscle pain Endocrine: No polyuria, No polydipsia Psychiatric: No prior psych history, Depression, Anxiety, No suicidal ideation, No homicidal ideation, No auditory hallucination, No visual hallucination Hematopoietic: No bruising, No lymphadenopathy Allergic/Immuno: No urticaria, No angioedema Neurological: No syncope, No focal symptoms, No weakness, No paresthesia, No headache, No seizure, No dizziness, No confusion, No vertigo ED Past Medical History - Past Medical History Past Medical History: No significant medical hx Family Medical History - Family Member Mother History Unknown: Yes Ethnicity: Unknown Living Status: Unknown Hx Family Cancer: (unknown) Hx Family Coronary Artery Disease: (UNKNOWN) Hx Family Congestive Heart Failure: (UNKNOWN) Hx Family Hypertension: (UNKNOWN) Hx Family Stroke: (UNKNOWN) Hx Family Diabetes: (UNKNOWN) Hx Family Seizures: (UNKNOWN) Hx Family Dementia: (UNKNOWN) Hx Family AIDS: (UNKNOWN) Hx Family COPD: (UNKNOWN) Hx Family Hepatitis: (UNKNOWN) Hx Family Psychiatric Problems: (UNKNOWN) Hx Family Tuberculosis: (UNKNOWN) ED Physical Exam - Physical Examination General/Constitutional: Awake, Well-developed, well-nourished, Alert, No distress, GCS 15, Non-toxic appearing, Ambulatory Head: Atraumatic Eyes: Lids, conjuctiva normal, PERRL, EOMI Skin: Nl inspection, No rash, No skin lesions, No ecchymosis, Well hydrated, No lymphadenopathy ENMT: External ears, nose nl, Nasal exam nl, Lips, teeth, gums nl Neck: Nontender, Full ROM w/o pain, No JVD, No nuchal rigidity, No bruit, No mass, No stridor Respiratory: Nl effort/Exclusion, Clear to Auscultation, No Wheeze/Rhonchi/Rales Cardio Vascular: RRR, No murmur, gallop, rubs, NL S1 S2 GI: No tenderness/rebounding/guarding, No organomegaly, No hernia, Normal BS's, Nondistended, No mass/bruits, No McBurney tenderness : No CVA tenderness Extremities: No tenderness or effusion, Full ROM, normal strength in all extremities, No edema, Normal digits & nails Neuro/Psych: Alert/oriented, DTR's symmetric, Normal sensory exam, Normal motor strength, Judgement/insight normal, Mood normal, Normal gait, No focal deficits Misc: Normal back, No paraspinal tenderness ED Assessment - Assessment General Assessment: anxiety homelessness ED Septic Shock - . Is Septic Shock (SBP<90, OR Lactate>4 mmol\L) present?: No - <6hrs of presentation: Vital Signs: Vital Signs - 8 hr 04/18/18 13:36 Temp 97.5 F HR 102 RR 24 BP 161/81 O2 Sat % 100 ED Discharge Plan - Patient Disposition Condition at Disposition: Stable Additional Instructions: pt given some food here and given list of homeless shelters
== END 2018-04-18 14:51 | disposition home or self-care (01) ==
LOC: ER 13:29
DX: F41.9 Anxiety disorder, unspecified (principal); Z88.5 Allergy status to narcotic agent; Z88.8 Allergy status to other drugs, medicaments and biological substances; Z59.0 Homelessness
CPT/HCPCS: Z7502